=== PATIENT | female | born 1990 | race Caucasian/White ===

== ENCOUNTER 2024-10-21 12:23 | Observation (INO) ==
[2024-10-21] MEDS: ONDANSETRON INJ 2 MG/ML 2 ML VIAL IV STA (13:43)
[2024-10-21] MEDS: KETOROLAC 30 MG/ML VIAL IV STA (13:43)
--- NOTE | 2024-10-21 14:08 | Emergency Department Note ---
Impression & Plan Abscess, dental, Pain due to dental caries ED Provider Note CHIEF COMPLAINT: Dental abscess HISTORY OF PRESENTING ILLNESS: Patient is a 33-year-old female who presents to the emergency department today for increased pain from a dental abscess. She was seen here in the emergency department yesterday and had a CT scan done that did show a dental abscess due to dental caries and cavities. She does have poor dentition. She states that she does not have dental and insurance and is unable to follow-up with a dentist. Patient was started on Augmentin 875 here in the emergency department yesterday. The patient states the pain and pressure has gotten worse overnight. She is here today with her mother who is persistent on getting this taken care of today for her. Yesterday I did talk to Dr. Díaz who is willing to evaluate the patient but the patient did refuse admission or surgical consultation. She denies chest pain, sob, breathing difficulties, abdominal pain, headache, fevers/chills, blood in stool or urine, any recent illness, or any recent travel. REVIEW OF SYSTEMS: See HPI for pertinent positives and pertinent negatives. ALLERGIES: See below MEDICATIONS: See below PAST MEDICAL HISTORY: See below PHYSICAL EXAM: VITALS: Vitals are noted on the nurse's note and reviewed by myself. GENERAL: Non toxic, in no acute distress, non-diaphoretic. SKIN: Capillary refill <2 sec. NOSE: Poor dentition is noted. There are multiple dental caries and cavities. There is a significant amount of swelling along the gumline. Patent without discharge. MOUTH: Mucous membranes moist. Uvula midline. Airway patent. NECK: There is a large golf ball size mass to the right side of her neck likely some lymph nodes. Supple without nuchal rigidity. HEART: Regular rate and rhythm without murmurs gallops or rubs. LUNGS: Clear to auscultation bilaterally without wheezes, rales or rhonchi. No retractions or accessory muscle use. MUSCULOSKELETAL: No gross musculoskeletal defects. NEURO: Patient was alert and oriented. No focal neurological deficits. DIFFERENTIAL DIAGNOSIS: Dental abscess, dental caries, dental fractures, cavities, sepsis, worsening infection, adenopathy, among others. ED COURSE AND MEDICAL DECISION MAKING: HISTORY FROM INDEPENDENT HISTORIAN: History was provided by the patient and her mother who is at bedside. INTERPRETATION OF LABS: I interpreted the labs with full lab results as below in the lab section of this note. Laboratory results pertinent to the emergent complaint are discussed in the MDM section below. The patient was advised to follow up with their PCP and/or specialist(s) for further outpatient monitoring and management of any abnormal results. CHRONIC MEDICAL/SOCIAL CONDITIONS AFFECTING CARE: No social concerns were identified as barriers to patients care. SUMMARY: I examined the patient for complaints of dental abscess. A physical exam and history were performed. Nursing notes, EMR, and medication list were personally reviewed. CBC showed no leukocytosis, anemia, thrombocytopenia. CMP showed no emergent findings. The patient was given Zofran 4 mg and Toradol 30 mg IV with improvement in pain and discomfort. I did consult with Dr. Díaz who plan to take the patient to the OR for drainage of the abscess. I then consulted with the hospitalist and talked to Gale Camara PA-C who accepted the patient for admission to the hospital under Dr. Brandon. DIAGNOSIS: Dental abscess, dental caries, poor dentition, dental cavities TREATMENT PLAN/DISCHARGE INSTRUCTIONS: Admit to hospitalist services. Past Med/Surg History Problem List Pain due to dental caries (Acute) Abscess, dental (Acute) Hydronephrosis of left kidney Left flank pain COVID-19 (Acute) Encounter for pre-operative examination Medical marijuana use Kidney stones Medical History Complex endometrial hyperplasia with atypia PCOS (polycystic ovarian syndrome) History of nephrolithiasis PTSD (post-traumatic stress disorder) Depression Anxiety Asthma Has not used albuterol in nearly a year Surgical History History of hysteroscopy History of laparoscopy History of D&C x 2 History of surgery on left wrist hardware present Family History Father Diabetes Grandmother (Paternal) Diabetes Other No family history of adverse response to anesthesia Social History Smoking Status: Never smoker Second Hand Exposure: Yes (as a child); Do You Dip or Chew Tobacco: No; Hx Alcohol Use: Yes Hx Substance Use: Yes Last Used Substance Other:: uses prn for anxiety Substance Use Type Other:: medical marijuana Preferred Language: Pashto Communication Ability: Effective Television Camera Operator Required: No Beliefs That Will Affect Care: None Current Living Situation: Family Feels Safe at Home: Yes Assistive Devices: Glasses Allergies Allergies Allergy/AdvReac Type Severity Reaction Status Date / Time latex Allergy Rash Verified 07/02/24 15:39 prednisone AdvReac Vomiting Verified 07/02/24 15:39 Home Meds Home Medications Medication Instructions Recorded Confirmed medroxyprogesterone 10 mg tablet 10 mg PO UD 03/21/22 07/02/24 (Provera) triamcinolone acetonide 0.1 % 1 applic topical DAILY PRN FLARE 06/03/24 07/02/24 lotion Previous Rx's Medication Instructions Recorded prochlorperazine maleate 5 mg 5 mg PO Q8H PRN nausea and 06/03/24 tablet (Compazine) vomiting #10 tabs amoxicillin 875 mg-potassium 1 tab PO BID #20 tabs 07/20/24 clavulanate 125 mg tablet hydrocodone 5 mg-acetaminophen 325 1 - 2 tab PO Q6H PRN pain #10 tabs 07/20/24 mg tablet amoxicillin 875 mg-potassium 1 tab PO BID #18 tabs 10/20/24 clavulanate 125 mg tablet amoxicillin 875 mg-potassium 1 tab PO BID #20 tabs 10/20/24 clavulanate 125 mg tablet Results & Data (ED) Vital Signs Vital Signs - 24 hr 10/21/24 13:03 10/21/24 14:27 Temperature 36.4 C L Temperature Source Temporal Artery Scan Pulse Rate 93 H Pulse Rate [Finger] 88 Respiratory Rate 18 Respiratory Effort / Characteristics Non-Labored Spontaneous Respiratory Depth Normal Respiratory Pattern Regular Blood Pressure 147/99 H Blood Pressure Mean 115 Pulse Oximetry 99 95 Oxygen Delivery Method Room Air Room Air Sepsis Recent Fever Within 48 Hours No Sepsis New/Unexplained Change in Mental Status No Sepsis Action Taken by Nursing No Action Required Laboratory Data 10/21/24 13:00 10/21/24 13:00 Lab Results 10/21/24 Range/Units 13:00 WBC 10.10 (4.8-10.8) K/ul RBC 4.68 (4.20-5.40) M/uL Hgb 13.1 (12.0-16.0) g/dl Hct 40.2 (37.0-47.0) % MCV 85.9 (80.0-100.0) fL MCH 28.0 (25.0-34.0) pg MCHC 32.6 (32.0-36.0) g/dL RDW Std Deviation 43.6 (36.4-46.3) fL RDW Coeff of Sg 13.9 (11.5-14.5) % Plt Count 215 (130-400) K/uL MPV 9.8 (9.4-12.4) fL Immature Gran % (Auto) 0.4 % Neut % (Auto) 73.4 % Lymph % (Auto) 11.7 % [place] % (Auto) 13.8 % Eos % (Auto) 0.4 % Baso % (Auto) 0.3 % Neut # (Auto) 7.42 H (1.40-6.50) K/uL Lymph # (Auto) 1.18 L (1.20-3.40) K/uL [place] # (Auto) 1.39 H (0.11-0.59) K/uL Eos # (Auto) 0.04 (0.00-0.50) K/uL Baso # (Auto) 0.03 (0.00-0.20) K/uL Immature Gran # (Auto) 0.04 (0.01-0.20) K/uL Sodium 136 (136-145) mmol/L Potassium 3.9 (3.5-5.1) mmol/L Chloride 101 (98-107) mmol/L Carbon Dioxide 27 (21-32) mmol/L Anion Gap 8 (3-11) BUN 13 (6-23) mg/dl Creatinine 0.74 (0.6-1.2) mg/dl Est Cr Clr Drug Dosing 88.7 ml/min eGFR 108.81 BUN/Creatinine Ratio 17.6 (10-20) Glucose 104 H (70-99(Fasting)) mg/dl Calcium 9.4 (8.6-10.3) mg/dl Total Bilirubin 1.3 H (0.2-1.0) mg/dl AST 19 (13-39) U/L ALT 16 (7-52) U/L Alkaline Phosphatase 98 (34-104) U/L Total Protein 8.0 (6.0-8.3) gm/dl Albumin 3.8 (3.4-5.0) gm/dl Globulin 4.2 H (2.5-4.0) gm/dl Albumin/Globulin Ratio 0.9 (0.9-2) Administered Medications Ampicillin Sodium/Sulbactam Sodium (Unasyn) 3,000 mg in 100 mls @ 200 mls/hr IV NOW STA Stop: 10/21/24 14:44 Last Admin: 10/21/24 14:33 Dose: 200 mls/hr Documented By: FIDE Discontinued Medications Ketorolac Tromethamine (Ketorolac 30 Mg/Ml Vial) 30 mg IV NOW STA Stop: 10/21/24 13:38 Last Admin: 10/21/24 13:43 Dose: 30 mg Documented By: FIDE Ondansetron HCl (Ondansetron Inj 2 Mg/Ml 2 Ml Vial) 4 mg IV NOW STA Stop: 10/21/24 13:38 Last Admin: 10/21/24 13:43 Dose: 4 mg Documented By: FIDE Discharge Plan Visit Data Chief Complaint: Sore Throat Stated Complaint: DIFFICULTY SWALLOWING,SORE THROAT ED Provider: Avni Knight ED Midlevel Provider: Reina Yost Discharge Problem: Abscess, dental, Pain due to dental caries Patient Disposition: Admitted As Inpatient Condition: Good Forms Stand Alone Forms: [facility] Prescriptions Prescriptions: No Action medroxyprogesterone [Provera] 10 mg tablet 10 mg PO UD Rx Instructions: Take 10mg by mouth once daily for 10 days if no menstrual cycle in 3 months. hydrocodone-acetaminophen 5-325 mg tablet 1 - 2 tab PO Q6H PRN (Reason: pain) Qty: 10 0RF Rx Instructions: Initial Treatment amoxicillin-pot clavulanate 875-125 mg tablet 1 tab PO BID Qty: 20 0RF amoxicillin-pot clavulanate 875-125 mg tablet 1 tab PO BID Qty: 18 0RF amoxicillin-pot clavulanate 875-125 mg tablet 1 tab PO BID Qty: 20 0RF triamcinolone acetonide 0.1 % lotion 1 applic TOPICAL DAILY PRN (Reason: FLARE) prochlorperazine maleate [Compazine] 5 mg tablet 5 mg PO Q8H PRN (Reason: nausea and vomiting) Qty: 10 0RF Referrals Referrals: PCP,NO [Primary Care Provider] -
[2024-10-21 14:12] LABS: Hematocrit (blood only) 40.2 % (37.0-47.0); Hemoglobin 13.1 g/dl (12.0-16.0); Immature Granulocytes # (auto) 0.04 K/uL (0.01-0.20); Immature Granulocytes % (auto) 0.4 %; Mean Corpuscular Hemoglobin 28.0 pg (25.0-34.0); Mean Corpuscular Volume 85.9 fL (80.0-100.0); Platelet Count 215 K/uL (130-400); RDW Standard Deviation 43.6 fL (36.4-46.3); Red Blood Count 4.68 M/uL (4.20-5.40); White Blood Count 10.10 K/ul (4.8-10.8)
[2024-10-21 14:30] LABS: Alanine Aminotransferase 16.0 U/L (7-52); Albumin Globulin Ratio 0.9 (0.9-2); Alkaline Phosphatase 98.0 U/L (34-104); Anion Gap 8.0 (3-11); Bilirubin,Total 1.3 mg/dl (0.2-1.0); Blood Urea Nitrogen 13.0 mg/dl (6-23); Calcium 9.4 mg/dl (8.6-10.3); Carbon Dioxide 27.0 mmol/L (21-32); Chloride 101.0 mmol/L (98-107); Creatinine Clr Calc Pharmacy 88.7 ml/min; Globulin 4.2 gm/dl (2.5-4.0); Glucose 104.0 mg/dl (70-99(Fasting)); Potassium 3.9 mmol/L (3.5-5.1); Sodium 136.0 mmol/L (136-145); Total Protein 8.0 gm/dl (6.0-8.3)
[2024-10-21] MEDS: AMPICILLIN/SULBACTAM SOD 3,000 MG/100 ML BAG IV STA (14:33)
--- NOTE | 2024-10-21 14:45 | History & Physical Report ---
Date of Service October 21, 2024 Assessment & Plan (1) Abscess, dental: (2) Pain due to dental caries: Plan This is a 33 year old female with past medical history of kidney stones who presented to the ED on 10/21/2024 with ongoing dental complaints. #Dental abscess Soft tissue neck CT 10/20: odontogenic disease including multiple dental caries & periapical lucencies. dental caris & periapical abscess of right 2nd mandibular molar w/ cortical erosion & associated 1x0.5cm abscess long medial aspect of posterior right irvin mandible. moderate adjacent inflammation. no additional abscesses. inflammation adjacent to right submandibular gland which is likely od ontogenic in etiology. mildly enlarged right sided cervical lymph nodes which are likely reactive. CBC w/o leukocytosis. BMP w/ stable renal function & electrolytes Continue IV Unasyn --> was using PO Augmentin @ home IV Toradol for pain or fever. NPO LR @ 125ml/hr Dr. Díaz consulted, appreciate recommendations AM CBC, BMP. DVT prophylaxis: hold chemical in setting of procedure, SCD's Code: full Case was discussed w/ Dr. Brandon at time of admission. History of Present Illness Primary Care Provider: NO PCP This is a 33 year old female with past medical history of kidney stones who presented to the ED on 10/21/2024 with ongoing dental complaints. Sanjuanita was seen and examined with her mother at bedside. She was recently in the ED yesterday with similar symptoms including right sided edema of neck/face, pain. She underwent a Ct scan that showed concern for abscess in her right mandibular region. It was recommended that she see Dr. Díaz & be admitted but patient refused, wanting to go home. She was sent home with Augmentin for further treatment. Patient states that she was able to take a dose of Augmentin yesterday evening & this morning. She states it is painful to swallow so she was having a hard time getting it down. She states that she was also febrile overnight w/ a temp > 100F. She states she took Aleve for her fever. She did try to eat applesauce & pudding but had an episode of emesis. She denies any SOB, Chest pain, abdominal pain, changes in bowels, lower extremity edema, or urinary urgency/frequency. While in the ED she was given Zofran & Toradol. Dr. Díaz was contacted who recommended admission & he would see the patient this afternoon. She did have a CBC without leukocytosis & a stable BMP. Allergies Allergy/AdvReac Type Severity Reaction Status Date / Time latex Allergy Rash Verified 10/22/24 10:27 prednisone AdvReac Vomiting Verified 10/22/24 10:27 Home Medications Medication Instructions Recorded Confirmed Type medroxyprogesterone 10 mg tablet 10 mg PO UD 03/21/22 07/02/24 History (Provera) prochlorperazine maleate 5 mg 5 mg PO Q8H PRN nausea and 06/03/24 07/02/24 Rx tablet (Compazine) vomiting #10 tabs triamcinolone acetonide 0.1 % 1 applic topical DAILY PRN FLARE 06/03/24 07/02/24 History lotion amoxicillin 875 mg-potassium 1 tab PO BID #20 tabs 07/20/24 Rx clavulanate 125 mg tablet hydrocodone 5 mg-acetaminophen 325 1 - 2 tab PO Q6H PRN pain #10 tabs 07/20/24 Rx mg tablet amoxicillin 875 mg-potassium 1 tab PO BID #18 tabs 10/20/24 Rx clavulanate 125 mg tablet amoxicillin 875 mg-potassium 1 tab PO BID #20 tabs 10/20/24 Rx clavulanate 125 mg tablet chlorhexidine gluconate 0.12 % 15 ml buccal BID #1,500 mL 10/22/24 Rx mouthwash (Peridex) hydrocodone 5 mg-acetaminophen 325 1 tab PO Q4H PRN pain #14 tabs 10/22/24 Rx mg tablet Past Med/Surg History Problem List Pain due to dental caries (Acute) Abscess, dental (Acute) Hydronephrosis of left kidney Left flank pain COVID-19 (Acute) Encounter for pre-operative examination Medical marijuana use Kidney stones Medical History Complex endometrial hyperplasia with atypia PCOS (polycystic ovarian syndrome) History of nephrolithiasis PTSD (post-traumatic stress disorder) Depression Anxiety Asthma Has not used albuterol in nearly a year Surgical History (Updated 10/22/24 @ 11:58 by Pina Mckeon RN) H/O tooth extraction (10/22/24) Extraction of Teeth (Right) - Nestor Díaz DMD History of incision and drainage (10/22/24) Incision and Drainage Submandibular Right Side(Right) - Nestor Díaz DMD History of hysteroscopy History of laparoscopy History of D&C x 2 History of surgery on left wrist hardware present Family History Father Diabetes Grandmother (Paternal) Diabetes Other No family history of adverse response to anesthesia Social History Smoking Status: Never smoker Second Hand Exposure: Yes (as a child); Do You Dip or Chew Tobacco: No; Hx Alcohol Use: Yes Hx Substance Use: Yes Last Used Substance Other:: uses prn for anxiety Substance Use Type Other:: medical marijuana Preferred Language: Persian Communication Ability: Effective Hha Required: No Beliefs That Will Affect Care: None Current Living Situation: Family Feels Safe at Home: Yes Assistive Devices: None Physical Exam Constitutional: WD/WN, vitals as above ENMT: tenderness to palpation on right side of neck. soft Neck: trachea midline, no thyromegaly Respiratory: normal respiratory effort, lungs clear to auscultation Cardiovascular: RRR, no murmur, no edema Gastrointestinal (Abdomen): normal bowel sounds, soft, nontender, no hepatosplenomegaly Skin: no rashes, warm and dry Neurologic: PERRL, EOMI, accommodation nl, no face palsy, no dysarthria Psychiatric: A+Ox3, euthymic affect Results & Data Results & Data Vital Signs (Past 12 Hours) Vital Signs Temp Pulse Pulse Resp BP Pulse Ox O2 Del Method 10/21/24 14:27 88 95 Room Air 10/21/24 13:03 36.4 C L 93 H 18 147/99 H 99 Room Air Supervising Physician Co-Signing Physician Notes During face to face encounter, I obtained a history and physical examination, discussed plan of care with patient and answered any questions. I discussed plan of care with KAR Lackey. I reviewed above note and agree with it except for the following: Patient will be admitted for a dental abscess. Placed on IV antibiotics and will consult Dr. Díaz PG Care Time/CCT Total # of Minutes Spent Total Time Spent with Patient: Total time spent is greater than 50% in coordination of care (as documented) at patient's floor/unit and/or counseling patient: Coding Level of Care Code 10340 INT INP/OBS CARE MIN Diagnoses Abscess, dental K04.7 Pain due to dental caries K02.9
[2024-10-21] MEDS: LACTATED RINGER'S 1,000 ML IV SCH (15:13)
[2024-10-21] MEDS ORDERED: ONDANSETRON INJ 2 MG/ML 2 ML VIAL IV PRN (16:09)
[2024-10-21] MEDS: ACETAMINOPHEN 1,000 MG/100 ML VIAL IV PRN (16:13)
--- NOTE | 2024-10-21 19:22 | Oral/Maxillofacial Consult ---
Date of Consultation October 21, 2024 Assessment & Plan (1) Pain due to dental caries: (2) Abscess, dental: History of Present Illness Attending Physician: Michelle De León MD History of Present Illness Oral Maxillofacial Surgery Exam Present Complaint: I have pain/swelling/drainage from my infected teeth especially # 31 lower right side Symptoms have been ongoing for a while. Oral Exam: Finding--acute masseter space and submandibular space abscess,P-cor associated with the # 31 tooth, tender gingival tissue with deep pocket formation.Teeth are in an abnormal position and removal is clinical indicated. Imaging: CT was reviewed, there were no abnormal findings other then the infected teeth and infection as noted in the CT report The TMJ are well positioned and no evidence of bony pathology. The sinus, supporting bone all WNL Evaluated the nerve/sinus relationship to the roots of the teeth. The following teeth were abscessed- 31 CT OF THE NECK WITH IV CONTRAST CLINICAL HISTORY: Neck swelling and pain. FINDINGS: Visualized portions of the intracranial contents are unremarkable. Vascular cells are clear. There is a small mucous retention cyst within the left maxillary sinus. No orbital abnormalities are identified. There is mild stranding adjacent to the right submandibular gland which is likely odontogenic in etiology. Several mildly enlarged right-sided cervical lymph nodes are likely reactive. Index right level 2 lymph node on image 221 of 429 measures 1.4 x 1 cm. Moderate inflammation centered on the posterior right hemimandible. Multiple dental caries are noted. There are dental caries and periapical abscess of the right second mandibular molar with associated cortical disruption. There is an associated rim-enhancing 1 x 0.5 cm fluid collection along the medial aspect of the posterior right hemimandible. No additional fluid collections are present. Multiple dental amalgams are present. The airway is patent. Epiglottis is normal. Major vasculature of the neck is patent. Visualized portions of the lung apices are unremarkable. IMPRESSION: 1. Odontogenic disease including multiple dental caries and periapical lucencies. Dental caries and periapical abscess of the right second mandibular molar with cortical erosion and an associated 1 x 0.5 cm abscess along the medial aspect of the posterior right hemimandible. Moderate adjacent inflammation. No additional abscesses. 2. Inflammation adjacent to the right submandibular gland which is likely odontogenic in etiology. 3. Mildly enlarged right-sided cervical lymph nodes which are likely reactive. Soft tissue: The floor of the mouth right side swollen with an abscess from the infected # 31 The tongue, hard/soft palate, posterior pharyngeal area all with in normal limits, no pathology or abnormal findings noted. Right gland swelling Oral Care: Overall oral care is fair/poor Occlusion: Class I TMJ exam: Difficult to open secondary to the infection and neck swelling. Periodontal exam: Early evidence of gingival inflammatory tissue with evidence of periodontal pathology. Head/Neck exam: Neck is supple, limited ability to preform FROM due to infection,also somewhat limited to extend and flex neck w/o difficulty, Right submandibular nodes, no other abnormalities, no airway issues, no evidence of sleep apnea. Treatment Plan: Set up with general anesthesia in hospital due to complexity of the procedure, pain, limited jaw opening and need to drain infection lower right side I reviewed the treatment plan and consent with the patient Understanding was expressed. Time was given for questions regarding the surgery, risks and post op care. Discussed alternative to treatment--procedure as planned, Do not do surgery The following tooth will be removed 31 and ? others Risks discussed: Bleeding,Pain,swelling,infection, dry socket, delayed healing, nerve injury to face,lips,tongue,chin area which could be permanent (rare). TMJ, jaw stiffness, change in bite (rare), ear pain (referred). Sinus problems like fistula or infection. Need to leave a small root fragment in place to avoid injury to nerve or sinus. Relationship of teeth to nerve/sinus and risk of jaw fracture. Surgery to be set up Today with anticipated discharge later on Friday afternoon Allergies Allergy/AdvReac Type Severity Reaction Status Date / Time latex Allergy Rash Verified 07/02/24 15:39 prednisone AdvReac Vomiting Verified 07/02/24 15:39 Home Medications Medication Instructions Recorded Confirmed Type medroxyprogesterone 10 mg tablet 10 mg PO UD 03/21/22 07/02/24 History (Provera) prochlorperazine maleate 5 mg 5 mg PO Q8H PRN nausea and 06/03/24 07/02/24 Rx tablet (Compazine) vomiting #10 tabs triamcinolone acetonide 0.1 % 1 applic topical DAILY PRN FLARE 06/03/24 07/02/24 History lotion amoxicillin 875 mg-potassium 1 tab PO BID #20 tabs 07/20/24 Rx clavulanate 125 mg tablet hydrocodone 5 mg-acetaminophen 325 1 - 2 tab PO Q6H PRN pain #10 tabs 07/20/24 Rx mg tablet amoxicillin 875 mg-potassium 1 tab PO BID #18 tabs 10/20/24 Rx clavulanate 125 mg tablet amoxicillin 875 mg-potassium 1 tab PO BID #20 tabs 10/20/24 Rx clavulanate 125 mg tablet Patient History Medical History Complex endometrial hyperplasia with atypia PCOS (polycystic ovarian syndrome) History of nephrolithiasis PTSD (post-traumatic stress disorder) Depression Anxiety Asthma Has not used albuterol in nearly a year Surgical History History of hysteroscopy History of laparoscopy History of D&C x 2 History of surgery on left wrist hardware present Family History Father Diabetes Grandmother (Paternal) Diabetes Other No family history of adverse response to anesthesia Social History Smoking Status: Never smoker Second Hand Exposure: Yes (as a child); Do You Dip or Chew Tobacco: No; Hx Alcohol Use: Yes Hx Substance Use: Yes Last Used Substance Other:: uses prn for anxiety Substance Use Type Other:: medical marijuana Preferred Language: Guinean Communication Ability: Effective Assistant Librarian Required: No Beliefs That Will Affect Care: None Current Living Situation: Family Feels Safe at Home: Yes Assistive Devices: Glasses Results & Data Vital Signs (Past 12 Hours) Vital Signs Temp Pulse Pulse Resp BP BP Pulse Ox 10/21/24 17:30 10/21/24 15:42 37.0 C 88 18 151/93 H 97 10/21/24 15:24 76 17 121/89 98 10/21/24 14:27 88 95 10/21/24 13:03 36.4 C L 93 H 18 147/99 H 99 O2 Del Method 10/21/24 17:30 Room Air 10/21/24 15:42 Room Air 10/21/24 15:24 Room Air 10/21/24 14:27 Room Air 10/21/24 13:03 Room Air PG Care Time/CCT Total # of Minutes Spent Total Time Spent with Patient: Total time spent is greater than 50% in coordination of care (as documented) at patient's floor/unit and/or counseling patient: Coding Level of Care Code 34089 OFFICE CONSULT LVL Diagnoses Pain due to dental caries K02.9 Abscess, dental K04.7
[2024-10-21] MEDS: KETOROLAC TROMETHAMINE 15 MG/ML VIAL IV PRN (19:43)
[2024-10-21] MEDS: AMPICILLIN/SULBACTAM SOD 3,000 MG/100 ML BAG IV SCH (21:20)
[2024-10-22 06:40] LABS: Hematocrit (blood only) 36.8 % (37.0-47.0); Hemoglobin 11.8 g/dl (12.0-16.0); Mean Corpuscular Hemoglobin 27.8 pg (25.0-34.0); Mean Corpuscular Volume 86.8 fL (80.0-100.0); Platelet Count 209 K/uL (130-400); RDW Standard Deviation 43.4 fL (36.4-46.3); Red Blood Count 4.24 M/uL (4.20-5.40); White Blood Count 9.19 K/ul (4.8-10.8)
[2024-10-22 07:08] LABS: Anion Gap 7.0 (3-11); Blood Urea Nitrogen 11.0 mg/dl (6-23); Calcium 9.0 mg/dl (8.6-10.3); Carbon Dioxide 27.0 mmol/L (21-32); Chloride 105.0 mmol/L (98-107); Creatinine Clr Calc Pharmacy 105.4 ml/min; Glucose 88.0 mg/dl (70-99(Fasting)); Potassium 3.8 mmol/L (3.5-5.1); Sodium 139.0 mmol/L (136-145)
--- NOTE | 2024-10-22 09:02 | Anesthesiology Consultation ---
Date of Service October 22, 2024 Assessment & Plan Chart Review Chart Review: Acceptable Risk for Surgery and Patient NOT seen in Pre Admission Testing History Surgery Operation Date: 10/22/24 08:00 Proposed Procedures p Incision and Drainage Mandibular Right Side - Nestor Díaz DMD s Extration of Teeth - Nestor Díaz DMD Height/Weight Height: 4 ft 11 in Weight: 69.9 kg Allergies Allergy/AdvReac Type Severity Reaction Status Date / Time latex Allergy Rash Verified 07/02/24 15:39 prednisone AdvReac Vomiting Verified 07/02/24 15:39 Medications Home Medications Medication Instructions Recorded Confirmed Last Taken medroxyprogesterone 10 mg tablet 10 mg PO UD 03/21/22 07/02/24 06/02/24 (Provera) prochlorperazine maleate 5 mg 5 mg PO Q8H PRN nausea and 06/03/24 07/02/24 Unknown tablet (Compazine) vomiting #10 tabs triamcinolone acetonide 0.1 % 1 applic topical DAILY PRN FLARE 06/03/24 07/02/24 Unknown lotion amoxicillin 875 mg-potassium 1 tab PO BID #20 tabs 07/20/24 Unknown clavulanate 125 mg tablet hydrocodone 5 mg-acetaminophen 325 1 - 2 tab PO Q6H PRN pain #10 tabs 07/20/24 Unknown mg tablet amoxicillin 875 mg-potassium 1 tab PO BID #18 tabs 10/20/24 Unknown clavulanate 125 mg tablet amoxicillin 875 mg-potassium 1 tab PO BID #20 tabs 10/20/24 Unknown clavulanate 125 mg tablet Active Medications Generic Name Dose Route Start Last Admin Trade Name Conq PRN Reason Stop Dose Admin Lactated Ringer's 1,000 mls @ 125 mls/hr 10/21/24 14:45 10/22/24 05:12 Lr IV 10/24/24 14:44 125 mls/hr .Q8H STEFFEN Administration Acetaminophen 1,000 mg in 100 mls @ 400 mls/hr 10/21/24 15:19 10/21/24 17:29 Ofirmev IV 10/24/24 15:18 Infused Q8H PRN Infusion Pain or Fever Ampicillin Sodium/Sulbactam Sodium 3,000 mg in 100 mls @ 200 mls/hr 10/21/24 20:00 10/22/24 08:59 Unasyn IV 10/31/24 19:59 Infused Q6H STEFFEN Infusion Ketorolac Tromethamine 10 mg 10/21/24 16:09 10/22/24 05:08 Ketorolac Tromethamine 15 Mg/Ml Vial IV 10/26/24 16:08 10 mg Q6H PRN Administration Pain Past Medical History Medical History Complex endometrial hyperplasia with atypia PCOS (polycystic ovarian syndrome) History of nephrolithiasis PTSD (post-traumatic stress disorder) Depression Anxiety Asthma Has not used albuterol in nearly a year Past Family History Family History Father Diabetes Grandmother (Paternal) Diabetes Other No family history of adverse response to anesthesia Past Surgical History Surgical History History of hysteroscopy History of laparoscopy History of D&C x 2 History of surgery on left wrist hardware present Social History Smoking Status: Never smoker Do You Dip or Chew Tobacco: No Hx Alcohol Use: Yes alcohol intake frequency: holidays/special occasions only Hx Substance Use: Yes substance use type: marijuana Substance Use Type Other:: medical marijuana Last Used Substance Other:: uses prn for anxiety Physical Exam Vital Signs Last Vital Signs Temp 36.8 C 10/22/24 07:39 Pulse 82 10/22/24 07:39 Resp 16 10/22/24 07:39 BP 138/98 10/22/24 07:39 Pulse Ox 96 10/22/24 07:39 O2 Del Method Room Air 10/22/24 07:39 Testing Laboratory Results 10/22/24 05:51 10/22/24 05:51
[2024-10-22] MEDS ORDERED: ONDANSETRON INJ 2 MG/ML 2 ML VIAL ONE (09:36)
[2024-10-22] MEDS ORDERED: MIDAZOLAM HCL 1 MG/ML 2ML VIAL ONE (09:36)
[2024-10-22] MEDS ORDERED: ROCURONIUM BROMIDE 10 MG/ML 5 ML VIAL IV ONE (09:36)
[2024-10-22] MEDS ORDERED: LIDOCAINE 2% 2 ML VIAL/AMP(20MG/ML) INFIL ONE (09:36)
[2024-10-22] MEDS ORDERED: PROPOFOL IV EMULSION 10 MG/ML 20 ML VIAL IV ONE (09:36)
[2024-10-22] MEDS ORDERED: HYDROmorphone INJ 1 MG/ML SYRINGE IV PRN (10:02)
[2024-10-22] MEDS ORDERED: ONDANSETRON INJ 2 MG/ML 2 ML VIAL IV PRN (10:02)
[2024-10-22] MEDS ORDERED: ATROPINE SULFATE 0.1 MG/ML 10ML SYR IV PRN (10:02)
[2024-10-22] MEDS ORDERED: PROMETHAZINE HCL 6.25 MG in SODIUM CHLORIDE 0.9% 50 ML IV PRN (10:02)
--- NOTE | 2024-10-22 10:05 | History & Physical Bridge Note ---
Date of Service October 22, 2024 History & Physical Bridge Note I have examined the patient, reviewed the History & Physical and in the interval since the performance of the History & Physical I have noted the following changes of clinical significance: no changes noted OK for the I&D with extraction of # 31
[2024-10-22] MEDS: LACTATED RINGER'S 1,000 ML IV SCH (10:07)
[2024-10-22] MEDS: CHLORHEXIDINE GLUCONATE 0.12% 480 ML MT ONE (10:45)
[2024-10-22] MEDS ORDERED: SUGAMMADEX SODIUM 200 MG/2 ML VIAL IV ONE ×2 (10:47→11:04)
[2024-10-22] MEDS: BUPIVACAINE/EPINEPHRINE 0.5% 1:200,000 1.8 ML CARP ONE (10:50)
--- NOTE | 2024-10-22 11:01 | Post Operative Brief Note ---
PG Immediate Post Op with CF Date of Surgery October 22, 2024 Pre & Post Diagnosis Operation Date: 10/22/24 08:00 Pre-Op Diagnosis: Abscess, dental Post-Op Diagnosis: Abscess, dental I identified the patient and participated in the time-out.: Yes Procedure Operation Date: 10/22/24 08:00 Actual Procedures p Incision and Drainage Submandibular Right Side(Right) - Nestor Díaz DMD s Extration of Teeth(Right) - Nestor Díaz DMD Surgeon Nestor Díaz DMD Clinical Documentation Nurse none Estimated Blood Loss 5 Findings Consistent with Post-Op Diagnosis Swelling right floor of the mouth and submandibular space [place] # 31 Specimens Specimen Description: None per surgeon. Anesthesia Type General Complications none Disposition Accompanied Patient To Recovery: Yes
--- NOTE | 2024-10-22 11:32 | Anesthesiology Progress Note ---
Date of Service October 22, 2024 Anesthesia Post Procedure Vital Signs Vital Signs: Temp Pulse Pulse Pulse Resp BP BP 10/22/24 11:20 82 22 10/22/24 11:10 36.6 C 97 H 17 10/22/24 09:58 36.9 C 76 20 10/22/24 07:39 36.8 C 82 16 10/22/24 07:20 71 10/22/24 02:56 36.2 C L 82 16 10/21/24 22:49 36.6 C 91 H 16 122/84 10/21/24 21:40 79 10/21/24 19:25 36.3 C L 82 16 125/91 10/21/24 17:30 10/21/24 15:42 37.0 C 88 18 151/93 H 10/21/24 15:24 76 17 121/89 10/21/24 14:27 88 10/21/24 13:03 36.4 C L 93 H 18 147/99 H BP Pulse Ox O2 Del Method O2 Flow Rate 10/22/24 11:20 118/75 99 Oxymask 6 10/22/24 11:10 122/79 100 Oxymask 6 10/22/24 09:58 139/93 96 Room Air 10/22/24 07:39 138/98 96 Room Air 10/22/24 07:20 10/22/24 02:56 159/93 H 98 Room Air 10/21/24 22:49 97 Room Air 10/21/24 21:40 10/21/24 19:25 97 Room Air 10/21/24 17:30 Room Air 10/21/24 15:42 97 Room Air 10/21/24 15:24 98 Room Air 10/21/24 14:27 95 Room Air 10/21/24 13:03 99 Room Air Pain Intensity Right Lower Jaw: Pain Intensity: 4 Transfer of Care Handoff Completed per policy Notes Mental Status: alert / awake / arousable and participated in evaluation Patient Amnestic to Procedure: Yes Nausea / Vomiting: adequately controlled Pain: adequately controlled Airway Patency, RR, SpO2: stable & adequate BP & HR: stable & adequate Hydration State: stable & adequate Anesthetic Complications: no major complications apparent and Pt Satisfied with anesthetic care
[2024-10-22 11:52] VITALS: RESP 16
--- NOTE | 2024-10-22 12:24 | Discharge Summary ---
Discharge Summary Date of Service October 22, 2024 Principal Dx & Hospital Course #1 = Principal Diagnosis (1) Abscess, dental: (2) Pain due to dental caries: Plan This is a 33 year old female with past medical history of kidney stones who presented to the ED on 10/21/2024 with ongoing dental complaints. #Dental abscess Soft tissue neck CT 10/20: odontogenic disease including multiple dental caries & periapical lucencies. dental caris & periapical abscess of right 2nd mandibular molar w/ cortical erosion & associated 1x0.5cm abscess long medial aspect of posterior right irvin mandible. moderate adjacent inflammation. no additional abscesses. inflammation adjacent to right submandibular gland which is likely odontogenic in etiology. mildly enlarged right sided cervical lymph nodes which are likely reactive. CBC/BMP stable s/p dental procedure w/ Dr. Díaz 10/22. --> needs to follow up in 1-2 weeks from discharge. s/p IV Unasyn --> spoke w/ Dr. Díaz who recommended to continued previous prescribed Augmentin upon discharge. hydro-APAP for pain upon discharge Patient discharged home 10/22. Admission HPI Per Admitting Provider This is a 33 year old female with past medical history of kidney stones who presented to the ED on 10/21/2024 with ongoing dental complaints. Sanjuanita was seen and examined with her mother at bedside. She was recently in the ED yesterday with similar symptoms including right sided edema of neck/face, pain. She underwent a Ct scan that showed concern for abscess in her right mandibular region. It was recommended that she see Dr. Díaz & be admitted but patient refused, wanting to go home. She was sent home with Augmentin for further treatment. Patient states that she was able to take a dose of Augmentin yesterday evening & this morning. She states it is painful to swallow so she was having a hard time getting it down. She states that she was also febrile overnight w/ a temp > 100F. She states she took Aleve for her fever. She did try to eat applesauce & pudding but had an episode of emesis. She denies any SOB, Chest pain, abdominal pain, changes in bowels, lower extremity edema, or urinary urgency/frequency. While in the ED she was given Zofran & Toradol. Dr. Díaz was contacted who recommended admission & he would see the patient this afternoon. She did have a CBC without leukocytosis & a stable BMP. Discharge Exam Constitutional WD/WN, vitals as above Eyes PERRL, conjunctivae normal, anicteric sclerae Respiratory normal respiratory effort Neurologic PERRL, EOMI, accommodation nl, no face palsy, no dysarthria Psychiatric A+Ox3, euthymic affect Discharge Plan Discharge Items Patient Disposition: Home - Self-Care Reason For Visit: MANDIBULAR ABSCESS Discharge Diagnosis: s/p jaw abscess Condition on Discharge: Good Activity: Resume your previous activity Lifting: Gradually increase as tolerated Bathing: No limitations Exercise/Sports: Gradually increase as tolerated Driving/Machine Use: Resume 1 day after discharge Weightbearing: Full weightbearing Non-emergency contact: Surgeon Call non-emergency contact if: your symptoms worsen, your pain is not controlled, your temperature is above 101.5, your wound has increased redness, your wound has increased drainage and your wound pain has increased Follow-up/Referrals: Nestor Díaz, LAWANDA [Physician] - 11/04/24 10:45 am PCP,NO [Primary Care Provider] - Diet: Regular, Full liquid and Clear liquid Addtl Attending Provider Instructions: ADDITIONAL ACTIVITY RECOMMENDATIONS: * [place] teeth after every meal. It is very important to keep your mouth clean to prevent infection. * Starting tonight rinse with the Peridex as directed then 2 x a day * it is very important to keep well hydrated, this prevents fever and possible dry socket pain * Please take the Augmentin twice daily. Your next dose will be this evening, 10/22. * Please use Vicodin every 6 hours as needed for pain. SPECIAL CARE INSTRUCTIONS: *It is not uncommon that between day 2-4 that your swelling will be at its worst this is very normal, do not be alarmed. * Keep ice on the side of your face for the next 24 to 36 hours. This will help keep the swelling down. * After 36 hours, apply heat (hot water bottle or heating pad) for the next two days, as often as possible. * Tomorrow start rinsing your mouth with 1/2 teaspoon salt in 8 ounces warm water. This rinse should be used every 4-6 hours. * You may experience slight nausea. To prevent this, never take your medication on an empty stomach. If nauseated, take small sips of chitra bettina until you feel better; then you may start on applesauce and toast. * A certain amount of bleeding is to be expected. It is often possible to control mild oozing by placing folded gauze over the area and biting down for 30 minutes. If you are unable to control excessive bleeding, * You may experience some discomfort for a few days. If pain or swelling increases, Call Dr Díaz * Return to the office for a follow up check up on: Please call office to arrange for a follow up for 7-14 days from the day of discharge * office address--[address] [place], [place] [address]adriana Rascon. phone # [phone] Pending Studies at Discharge: No Stand-Alone Forms: My [facility] ALICE App, Smoking Cessation Medications and DC Order Prescriptions: New chlorhexidine gluconate [Peridex] 0.12 % mouthwash 15 ml buccal BID Qty: 1500 0RF Continued hydrocodone-acetaminophen 5-325 mg tablet 1 tab PO Q4H PRN (Reason: pain) Qty: 14 0RF medroxyprogesterone [Provera] 10 mg tablet 10 mg PO UD Rx Instructions: Take 10mg by mouth once daily for 10 days if no menstrual cycle in 3 months. hydrocodone-acetaminophen 5-325 mg tablet 1 - 2 tab PO Q6H PRN (Reason: pain) Qty: 10 0RF Rx Instructions: Initial Treatment amoxicillin-pot clavulanate 875-125 mg tablet 1 tab PO BID Qty: 20 0RF amoxicillin-pot clavulanate 875-125 mg tablet 1 tab PO BID Qty: 18 0RF amoxicillin-pot clavulanate 875-125 mg tablet 1 tab PO BID Qty: 20 0RF triamcinolone acetonide 0.1 % lotion 1 applic TOPICAL DAILY PRN (Reason: FLARE) prochlorperazine maleate [Compazine] 5 mg tablet 5 mg PO Q8H PRN (Reason: nausea and vomiting) Qty: 10 0RF Discharge Orders: Discharge Order (Routine); Ordered 10/22/24 Ordered By: Gale Lackey Admission Data Admit Date/Time: 10/21/24 14:19 Attending Provider: Michelle De León Admit Provider: Shaka Brandon Primary Care Provider: PCP,NO Other Providers: Nestor Díaz; Shaka Brandon Other Interventions: Discharge Summary Assessment (RN) Last Done: 10/22/24 13:43 Hospital Stay Data Consultations 10/21/24 14:17 Consult Oromaxillofacial Surgery Routine 10/21/24 16:23 ED Decision to Admit Stat Procedures Performed Operation Date: 10/22/24 08:00 Actual Procedures p Incision and Drainage Submandibular Right Side(Right) - Nestor Díaz DMD s Extration of Teeth(Right) - Nestor Díaz DMD Pending Results Patient Have Any Pending Studies at Discharge: No Discharge Instructions Given to Patient (Per Discharging Provider) ADDITIONAL ACTIVITY RECOMMENDATIONS: * [place] teeth after every meal. It is very important to keep your mouth clean to prevent infection. * Starting tonight rinse with the Peridex as directed then 2 x a day * it is very important to keep well hydrated, this prevents fever and possible dry socket pain * Please take the Augmentin twice daily. Your next dose will be this evening, 10/22. * Please use Vicodin every 6 hours as needed for pain. SPECIAL CARE INSTRUCTIONS: *It is not uncommon that between day 2-4 that your swelling will be at its worst this is very normal, do not be alarmed. * Keep ice on the side of your face for the next 24 to 36 hours. This will help keep the swelling down. * After 36 hours, apply heat (hot water bottle or heating pad) for the next two days, as often as possible. * Tomorrow start rinsing your mouth with 1/2 teaspoon salt in 8 ounces warm water. This rinse should be used every 4-6 hours. * You may experience slight nausea. To prevent this, never take your medication on an empty stomach. If nauseated, take small sips of chitra bettina until you feel better; then you may start on applesauce and toast. * A certain amount of bleeding is to be expected. It is often possible to control mild oozing by placing folded gauze over the area and biting down for 30 minutes. If you are unable to control excessive bleeding, * You may experience some discomfort for a few days. If pain or swelling increases, Call Dr Díaz * Return to the office for a follow up check up on: Please call office to arrange for a follow up for 7-14 days from the day of discharge * office address--[address] phone # [phone] Total Time Total Time Spent Total Time Spent (In Minutes): 50 Total Time Includes: Examination of the Patient, Discharge Planning, Medication Reconciliation and Communication With Other Providers Coding Level of Care Code 76030 INP/OBS DISCH >30 MIN Diagnoses Abscess, dental K04.7 Pain due to dental caries K02.9
[2024-10-22 12:32] VITALS: TEMP 98.6; O2SAT 95
[2024-10-22 13:44] VITALS: BP 122/84
[2024-10-22 14:09] VITALS: PULSE 87
--- NOTE | 2024-11-02 14:22 | Operative Report ---
PG Post Operative Report Pre & Post Diagnosis Operation Date: 10/22/24 08:00 Pre-Op Diagnosis: Abscess, dental Post-Op Diagnosis: Abscess, dental I identified the patient and participated in the time-out.: Yes Procedure Operation Date: 10/22/24 08:00 Actual Procedures p Incision and Drainage Submandibular Right Side(Right) - Nestor Díaz DMD s Extration of Teeth(Right) - Nestor Díaz DMD Surgeon Nestor Díaz DMD Board Liner Operator none Estimated Blood Loss 5 Findings Consistent with Post-Op Diagnosis Specimens none Drains none Anesthesia Type General Complications none Disposition Accompanied Patient To Recovery: Yes Indications acute facial infection Description of Procedure Actual Procedures p Incision and Drainage Submandibular Abscess; Removal of Tooth # 31 (Not Applicable) - Nestor Díaz DMD ICD 10 K12.2 CPT 97217 Right floor of the mouth D7210 # 31 Once cleared for surgery general anesthesia was achieved, the eyes were protected by the anesthesia dept criteria. A time out was take for patient ID, antibiotics, equipment and position verification once all agreed the procedure began. Local anesthesia using Marcaine with a vasoconstrictor ( 1.8 ml per site) given into right inferior alveolar nerve A throat pack was placed after the oral cavity was irrigated with saline. Once a surgical level of anesthesia was obtained and the local anesthesia was given time for the blocks the surgery was started. I turned my attention to the infection which was located in the floor of the mouth and submental area. The tongue was elevated and there was also swelling associated with tooth # 31 ( see CT scan report) Incision and Drainage CPT 26543 ICD 10 K12.2 CPT 26250 Right floor of the mouth Using a 15 blade an incision was made lateral to the alveolar ridge and medial to the duct of the submandibular gland. Once the incision was made a lot of pus extruded from the site. This drainage was cultured for anaerobic and aerobic bacteria. A curved hemostat was carefully placed into the infected space along the medial side of the lower jaw and into the submental/submandibular space. Some further drainage was now allowed to escape. I palpated the chin and submental area and no further drainage was expressed. The area was irrigated with at least 100 ml of NS solution. I now turned my attention to remove the # 31 tooth. Lower # 31 D7210 D7210 # 31 The full thick Muco-periosteal flap was made on the facial aspect from # 28-32. The flap was reflected to expose the the subperiosteal space the bone adjacent to # 31 The rongeur was used to remove bone, the tooth was removed with a 301 elevator, the mental nerve was intact, there was a large amount of granulation tissue on the apex and some more pus that was expressed. I inspected the sites to insure all bleeding was controlled. I removed the throat pack and suctioned the throat. A gauze pressure dressings was placed. All instrument and sponge count was correct. The patient was allowed to awake from the anesthesia. Once full awake the anesthesia tube was removed and the patient was taken to the recovery room with all vital sign stable. The patient tolerated the surgery very well. I will follow the patient in my office, Rx and instructions will be given upon discharge. I attest to the content of the Intraoperative Record and any orders documented therein. Any exceptions are noted below.
== END 2024-10-22 14:18 | disposition home or self-care (01) ==
LOC: ED 12:23 → 2N 12:23 → SUATTDRO 14:19 → 2N 15:24